=== PATIENT | male | born 1980 | race African-American/Black ===

== ENCOUNTER 2018-11-26 17:28 | Emergency (ER) | payer SELFPAY ==
[~2018-11-26] VITALS: Ht 175.3 cm; Wt 86.2 kg
[2018-11-26 17:34] VITALS: BP 129/85
--- NOTE | 2018-11-26 17:35 | NUR ---
ED Nurse Note: Ambulated in to ER due to left earache 03/22 and sorethroat x 2 days. No fever at the bedside. Ora temp of 98.1F.
[2018-11-26] MEDS ORDERED: DEBROX15 M1 LEFT EAR (17:59)
[2018-11-26] MEDS ORDERED: IBUPROFEN600 MG ORAL (17:59)
[2018-11-26] MEDS ORDERED: CLARITIN10 M1 ORAL (17:59)
--- NOTE | 2018-11-26 17:59 | Emergency Room Report ---
History of Present Illness General Chief Complaint: Sore Throat Source: Patient Present Illness HPI 38-year-old male patient presents ER complaining of sore throat and earache for the past 3 days. Reports left-sided earache. Denies ear drainage. Reports concern for ear being "clogged" with cerumen. Reports subjective fever, currently afebrile in the ER is. States has not taken medication for relief of symptoms. Reports pain with swallowing. Patient is repeatedly requesting antibiotics. Denies other aggravating or relieving factors. Denies recent travel. Denies dysuria, hematuria. Denies abdominal pain. Denies vomiting or diarrhea. Denies chest pain or shortness of breath. Allergies: Coded Allergies: No Known Allergies (Unverified , 11/26/18) Patient History Past Medical History: see triage record Reviewed Nursing Documentation: PMH: Agreed; PSxH: Agreed Nursing Documentation-PMH Past Medical History: No Stated History Review of Systems All Other Systems: negative except mentioned in HPI Physical Exam Vital Signs Date Time Temp Pulse Resp B/P (MAP) Pulse Ox O2 Delivery O2 Flow Rate FiO2 11/26/18 17:31 98.1 94 20 129/85 96 Sp02 EP Interpretation: reviewed, normal General Appearance: well appearing, no apparent distress, alert, GCS 15, non- toxic Head: normocephalic, atraumatic ENT: hearing grossly normal, normal pharynx, no angioedema, normal voice, TMs + canals normal, uvula midline, moist mucus membranes, other - Mild cerumen noted in left ear, no pain with ear pulling; no pharyngeal erythema, no tonsillar exudates, no tonsillar swelling Neck: full range of motion, no meningismus Respiratory: lungs clear, normal breath sounds, no rhonchi, no respiratory distress, no accessory muscle use, no wheezing, speaking full sentences Cardiovascular #1: regular rate, rhythm, no edema Gastrointestinal: non tender, soft, no mass, non-distended, no guarding, no rebound Musculoskeletal: back normal, digits/nails normal, gait/station normal, normal range of motion, non-tender Neurologic: alert, oriented x3, responsive, motor strength/tone normal, sensory intact, other - Negative Kernig, negative Brudzinski Psychiatric: mood/affect normal Skin: no rash Medical Decision Making PA Attestation Dr. Alberto is my supervising Physician whom patient management has been discussed with. Diagnostic Impression: Primary Impression: Sore throat Additional Impression: Earache ER Course Pt presents to ED c/o ear pain and sore throat. DDX considered but are not limited to rhinitis, sinusitis, otitis media, otitis externa, cerumen impaction, tonsillitis, pharyngitis, peritonsillar abscess. no uvula deviation, no neck stiffness, no stridor, no tripoding, low suspicion for peritonsillar abscess. VITAL SIGNS are WNL, patient is afebrile. Ordered hydrogen peroxide. ED INTERVENTIONS: PE No mastoid swelling or erythema, no rash or vesicles on face. No Erythema or edema of TMs bilaterally, no effusion. Mild cerumen noted in left ear, hydrogen peroxide utilized in the ER to help remove cerumen. Will provide patient with Debrox prescription. Patient instructed not to use Q-tips. Follow-up with primary care provider for further treatment and referral. Discuss referral to ENT. Provided with viscous lidocaine. Physical exam shows no tonsillar swelling, no exudates, no LAD, hx of cough, no fever, low suspicion for Strep Throat per [facility] criteria. Does not require abx at this time. Patient reports feeling better following administration of medication Salt water gargles ER precautions given. Followup with commercial green building designer in 2-3 days. Reports pain symptoms improved. DISCHARGE: At this time pt is stable for d/c to home. patient resting comfortably, no acute distress, nontoxic appearing, talking without difficulty, smiling. Patient to take medications as instructed Will provide with patient care instructions and any necessary prescriptions. Care plan and follow-up instructions provided. Patient instructed to follow-up with primary care in 3 - 5 days. Patient questions asked and answered. patient reports understanding and agreement treatment plan. ER precautions given. Patient instructed to return to ER immediately for any new or worsening of symptoms including but not limited to increasing SOB, persistent fever. - Please note that this Emergency Department Report was dictated using [employer] ordnance handler technology software, occasionally this can lead to erroneous entry secondary to interpretation by the dictation equipment. Last Vital Signs Date Time Temp Pulse Resp B/P (MAP) Pulse Ox O2 Delivery O2 Flow Rate FiO2 11/26/18 17:34 98.1 94 20 129/85 96 Status: improved Disposition: HOME, SELF-CARE Condition: Stable Scripts Ibuprofen* (MOTRIN*) 600 Mg Tablet 600 MG ORAL Q8H PRN for For Pain, #30 TAB 0 Refills Prov: Kodak Brown 11/26/18 Loratadine (CLARITIN) 10 Mg Tab.rapdis 10 MG ORAL DAILY, #30 TAB Prov: Kodak Brown 11/26/18 Carbamide Peroxide (DEBROX) 15 Ml Drops 5 DROP LEFT EAR TWICE A DAY for 4 Days, ML 0 Refills Prov: Kodak Brown 11/26/18 Patient Instructions: Earache, Sore Throat Additional Instructions: Followup with primary care provider in 3 -5 days. Salt water gargles Take Tylenol for pain and fever symptoms Drink plenty of water. Take medications as directed. Patient questions asked and answered. ER precautions given, patient instructed to return to ER immediately for any new or worsening of symptoms including but not limited to intractable vomiting, difficulty breathing, inability to eat. Kodak Brown Nov 26, 2018 17:59
[2018-11-26] MEDS ORDERED: Lidocaine 2% Visc 15ml soln ORAL ONE (18:00)
[2018-11-26] MEDS ORDERED: Hydrogen Peroxide 473ml Bottle TOPIC ONE (18:30)
[2018-11-26 18:33] VITALS: BP 129/85
--- NOTE | 2018-11-26 18:48 | NUR ---
ED Nurse Note: Pt cleared by health care Provider for discharge. DC instructions/prescription was given and explained to pt and verbalized understanding of teachings. All medical deviecs such as ID band removed. Pt is AAO x4, ambulatory and left with all personal belongings.
== END 2018-11-26 18:35 | disposition home or self-care (01) ==
LOC: EMR 18:03
DX: R07.0 Pain in throat (principal); H92.02 Otalgia, left ear
CPT/HCPCS: 99283